=== PATIENT | male | born 1995 | race Caucasian/White ===

== ENCOUNTER 2023-04-25 20:59 | Emergency (ER) | payer SELFPAY ==
[~2023-04-25] VITALS: Ht 165 cm; Wt 136.0 kg
[2023-04-25 21:05] VITALS: BP 148/86
[2023-04-25] MEDS ORDERED: fentaNYL INJECTION 100 MCG/2 ML VIAL IVP STA (21:12)
[2023-04-25] MEDS ORDERED: NS IV 1000 ML 1,000 ML IV STA (21:12)
[2023-04-25] MEDS ORDERED: ONDANSETRON INJECTION 4 MG/2 ML (SDV) IVP ONE (21:15)
[2023-04-25 21:16] LABS: BASOPHILS # (AUTO) 0.1 10^3/uL (0.0-0.1); BASOPHILS % (AUTO) 1 % (0-10); EOSINOPHILS # (AUTO) 0.5 10^3/uL (0.0-0.3); EOSINOPHILS % (AUTO) 5 % (0-10); HEMATOCRIT 43 % (40-54); HEMOGLOBIN 14.3 g/dL (13.3-17.7); LYMPHOCYTES # (AUTO) 2.7 10^3/uL (1.0-4.0); LYMPHOCYTES % (AUTO) 26 % (12-44); MEAN CORPUSCULAR HEMOGLOBIN 28 pg (25-34); MEAN CORPUSCULAR HGB CONC 33 g/dL (32-36); MEAN CORPUSCULAR VOLUME 85 fL (80-99); MEAN PLATELET VOLUME 9.8 fL (9.0-12.2); MONOCYTES # (AUTO) 1.1 10^3/uL (0.0-1.0); MONOCYTES % (AUTO) 10 % (0-12); NEUTROPHILS # (AUTO) 6.3 10^3/uL (1.8-7.8); NEUTROPHILS % (AUTO) 59 % (42-75); PLATELET COUNT 273 10^3/uL (130-400); WHITE BLOOD COUNT 10.7 10^3/uL (4.3-11.0)
--- NOTE | 2023-04-25 21:16 | ED Back Pain ---
General Chief Complaint: Back Problems Stated Complaint: BACK PAIN, BLOOD IN URINE, VOMITING, Source of Information: Patient Exam Limitations: No Limitations History of Present Illness Date Seen by Provider: Apr 25, 2023 Time Seen by Provider: 21:13 Initial Comments Patient is a 27-year-old male who presents ED with left flank, mid upper back pain. Pain started 4 days ago. Described as sharp and appears to be fairly constant. Does get relief with ibuprofen. Pain radiates to the left-sided upper abdomen. Pain seems to be worse with smoking and or sometimes eating. Does report some dark urine. Patient states he vomits every time he eats. History of appendectomy. History of gallstones. Denies chest pain, shortness of breath, cough. Patient states he was riding his skateboard 4 days ago and did fall on his middle left-sided back. He denied of any severe pain after the injury. Denies history of kidney stones. Patient denies of any dysuria, i ncreased urine frequency, fever, chills, headache, dizziness, neck pain, diarrhea Allergies and Home Medications Allergies Coded Allergies: No Known Drug Allergies (Unverified , 04/25/23) Patient Home Medication List Home Medication List Reviewed: Yes Naproxen (Naproxen) 500 Mg Tablet, 500 MG PO Q12H Prescribed by: OSIRIS LAZO on 04/25/232203 Review of Systems Constitutional: No chills, No diaphoresis EENTM: No ear pain, No blurred vision, No double vision Respiratory: No cough, No dyspnea on exertion Cardiovascular: No chest pain Gastrointestinal: abdominal pain; No diarrhea; nausea, vomiting Genitourinary: No decreased output, No discharge, No dysuria, No frequency; hematuria Musculoskeletal: back pain; No joint pain Skin: No change in color, No change in hair/nails All Other Systems Reviewed Negative Unless Noted: Yes Physical Exam Vital Signs Vital Signs - First Documented 04/25/23 21:05 Temp 36.4 Pulse 87 Resp 20 B/P (MAP) 148/86 (106) Pulse Ox 98 O2 Delivery Nasal Cannula Capillary Refill : Height, Weight, BMI Height: '" Weight: lbs. oz. kg; BMI Method: General Appearance: No Apparent Distress, WD/WN HEENT: PERRL/EOMI, TMs Normal, Normal ENT Inspection, Pharynx Normal Neck: Full Range of Motion, Normal Inspection, Non Tender Cardiovascular: Regular Rate, Rhythm, No Edema, No Gallop, No JVD Gastrointestinal: Normal Bowel Sounds, No Organomegaly, No Pulsatile Mass, Non Tender Back: CVA Tenderness (L), Vertebral Tenderness (Midthoracic tenderness. No swelling bruising or redness. No lumbar midline tenderness.) Extremity: Normal Capillary Refill, Normal Inspection, Normal Range of Motion, Non Tender Neurologic/Psychiatric: Alert, Oriented x3, No Motor/Sensory Deficits, Normal Mood/Affect, vaccine specialist II-XII Norm as Tested Skin: Normal Color, Warm/Dry Progress/Results/Core Measures Results/Orders Lab Results Laboratory Tests Test 04/25/23 21:07 04/25/23 21:10 Range/Units Urine Color YELLOW Urine Clarity CLEAR Urine pH 5.5 5-9 Urine Specific [place] >=1.030 1.016-1.022 Urine Protein NEGATIVE NEGATIVE Urine Glucose (UA) NEGATIVE NEGATIVE Urine Ketones NEGATIVE NEGATIVE Urine Nitrite NEGATIVE NEGATIVE Urine Bilirubin NEGATIVE NEGATIVE Urine Urobilinogen 0.2 < = 1.0 MG/DL Urine Leukocyte Esterase NEGATIVE NEGATIVE Urine RBC (Auto) NEGATIVE NEGATIVE Urine RBC RARE /HPF Urine WBC RARE /HPF Urine Squamous Epithelial Cells 0-2 /HPF Urine Crystals NONE /LPF Urine Bacteria NEGATIVE /HPF Urine Casts NONE /LPF Urine Mucus SMALL H /LPF Urine Culture Indicated NO White Blood Count 10.7 4.3-11.0 10^3/uL Red Blood Count 5.04 4.30-5.52 10^6/uL Hemoglobin 14.3 13.3-17.7 g/dL Hematocrit 43 40-54 % Mean Corpuscular Volume 85 80-99 fL Mean Corpuscular Hemoglobin 28 25-34 pg Mean Corpuscular Hemoglobin Concent 33 32-36 g/dL Red Cell Distribution Width 13.2 10.0-14.5 % Platelet Count 273 130-400 10^3/uL Mean Platelet Volume 9.8 9.0-12.2 fL Immature Granulocyte % (Auto) 0 % Neutrophils (%) (Auto) 59 42-75 % Lymphocytes (%) (Auto) 26 12-44 % Monocytes (%) (Auto) 10 0-12 % Eosinophils (%) (Auto) 5 0-10 % Basophils (%) (Auto) 1 0-10 % Neutrophils # (Auto) 6.3 1.8-7.8 10^3/uL Lymphocytes # (Auto) 2.7 1.0-4.0 10^3/uL Monocytes # (Auto) 1.1 H 0.0-1.0 10^3/uL Eosinophils # (Auto) 0.5 H 0.0-0.3 10^3/uL Basophils # (Auto) 0.1 0.0-0.1 10^3/uL Immature Granulocyte # (Auto) 0.0 0.0-0.1 10^3/uL Sodium Level 139 135-145 MMOL/L Potassium Level 4.0 3.6-5.0 MMOL/L Chloride Level 108 H 98-107 MMOL/L Carbon Dioxide Level 20 L 21-32 MMOL/L Anion Gap 11 5-14 MMOL/L Blood Urea Nitrogen 11 7-18 MG/DL Creatinine 0.86 0.60-1.30 MG/DL Estimat Glomerular Filtration Rate 121 BUN/Creatinine Ratio 13 Glucose Level 89 70-105 MG/DL Calcium Level 9.2 8.5-10.1 MG/DL Corrected Calcium 9.1 8.5-10.1 MG/DL Total Bilirubin 0.2 0.1-1.0 MG/DL Aspartate Amino Transf (AST/SGOT) 18 5-34 U/L Alanine Aminotransferase (ALT/SGPT) 17 0-55 U/L Alkaline Phosphatase 79 40-136 U/L Total Protein 7.0 6.4-8.2 GM/DL Albumin 4.1 3.2-4.5 GM/DL Lipase 79 H 8-78 U/L My Orders Orders - CLIFTON AUGUSTE Ua Culture If Indicated (04/25/23 21:01) Cbc And Automated Diff (04/25/23 21:04) Comprehensive Metabolic Panel (04/25/23 21:04) Ct Thoracic Spine Wo (04/25/23 21:10) Ct Abd/Pelvis Wo(Kidney Stone) (04/25/23 21:10) Lipase (04/25/23 21:10) Fentanyl Injection (Fentanyl Injection (04/25/23 21:12) Ns Iv 1000 Ml (Ns Iv 1000 Ml) (04/25/23 21:12) Ondansetron Injection (Ondansetron Inj (04/25/23 21:15) Medications Given in ED Vital Signs/I&O 04/25/23 21:05 Temp 36.4 Pulse 87 Resp 20 B/P (MAP) 148/86 (106) Pulse Ox 98 O2 Delivery Nasal Cannula Departure Communication (PCP) Reviewed previous ER visits, H&P, lab testing. Patient complaining of mid back pain left-sided flank pain past 3 to 4 days. Did state he was skateboarding 4 days ago fell hitting his lower back. Denies hitting his head, loss of consci ousness or on blood thinners. He denied immediate pain. This pain radiates to the left sided abdomen. No history of kidney stones. He does report vomiting seems to be worse with eating. Denies of any diarrhea, pain with urination but did report some hematuria. Differential diagnosis thoracic back sprain, thoracic spine fracture, nephrolithiasis, urolithiasis, cystitis. Denies any chest pain, shortness of breath or cough. No flulike symptoms. CBC, CMP, lipase, urinalysis was ordered. Urinalysis was negative for infection or hematuria. CBC showed normal white blood count, hemoglobin grossly unremarkable. Chemistry normal kidney function liver function and pancreatic function. CT scan of thoracic spine did not show any acute fracture. CT abdomen pelvis without contrast did not show any evidence of nephrolithiasis, urolithiasis and was grossly unremarkable. Did receive a dose of pain medication started on liter of fluid with improvement of pain. Discussed all results with patient. This is likely more thoracic muscle strain secondary to the fall. There is no evidence of acute abdomen. Pain improved significantly. Discussed all results with patient. Continue with conservative measures at home. Will discharge with anti-inflammatories. Follow-up your PCP in 2 to 3 days for reevaluation. If any worsening pain, vomiting, fever or symptoms return back to ED. Patient agrees with plan of action Impression Primary Impression: Back strain Disposition: 01 HOME, SELF-CARE Condition: Stable Departure-Patient Inst. Decision time for Depature: 22:02 Referrals: [facility] [place] [facility],LOCAL PHYSICIAN (PCP) Primary Care Physician Patient Instructions: Muscle Strain (DC) Add. Discharge Instructions: Recommend rest, anti-inflammatories. May take a few weeks for improvement. If any worsening symptoms return to keep All discharge instructions reviewed with patient and/or family. Voiced understanding. Scripts Naproxen (Naproxen) 500 Mg Tablet 500 MG PO Q12H for 7 Days, #14 TAB Prov: CLIFTON AUGUSTE 04/25/23 CLIFTON AUGUSTE Apr 25, 2023 21:16
[2023-04-25 21:23] LABS: CLARITY,URINE CLEAR; COLOR,URINE YELLOW
[2023-04-25 21:24] LABS: BILIRUBIN,URINE NEGATIVE (NEGATIVE); GLUCOSE, URINE (UA) NEGATIVE (NEGATIVE); KETONES,URINE NEGATIVE (NEGATIVE); NITRITE,URINE NEGATIVE (NEGATIVE); PH,URINE 5.5 (5-9); PROTEIN,URINE NEGATIVE (NEGATIVE)
[2023-04-25 21:25] LABS: BACTERIA,URINE NEGATIVE /HPF; LEUKOCYTE ESTERASE ,URINE NEGATIVE (NEGATIVE); RBC,URINE RARE /HPF; SQUAMOUS EPITHELIAL CELL,UR 0-2 /HPF; WBC,URINE RARE /HPF
[2023-04-25 21:36] LABS: ALBUMIN 4.1 GM/DL (3.2-4.5); BILIRUBIN,TOTAL 0.2 MG/DL (0.1-1.0); CALCIUM 9.2 MG/DL (8.5-10.1); CREATININE SERUM 0.86 MG/DL (0.60-1.30)
--- NOTE | 2023-04-25 21:54 | Diagnostic Imaging Report ---
PROCEDURE: CT urinary tract, rule out kidney stone. TECHNIQUE: Multiple contiguous axial images were obtained through the abdomen and pelvis without the use of intravenous contrast. Auto Exposure Controls were utilized during the CT exam to meet ALARA standards for radiation dose reduction. INDICATION: Fall with injury to abdomen and pelvis. Patient has blood in urine and left flank pain. FINDINGS: Unenhanced images of the liver, gallbladder, pancreas, adrenal glands, and spleen are unremarkable. The kidneys have a normal appearance. No perinephric hematoma is identified. There is no hydronephrosis or hydroureter. The unopacified bladder is unremarkable in appearance. The appendix is absent. No acute osseous abnormality is seen. IMPRESSION: No acute abnormality. Dictated by: Dictated on workstation # [id number]
--- NOTE | 2023-04-25 21:56 | Diagnostic Imaging Report ---
PROCEDURE: CT thoracic spine without contrast. TECHNIQUE: Multiple axial computerized tomography images were obtained from the base of the thoracic spine to the vertex without intravenous contrast. Auto Exposure Controls were utilized during the CT exam to meet ALARA standards for radiation dose reduction. INDICATION: Fall with back pain. FINDINGS: CT of the thoracic spine reveals normal thoracic spinal curvature and alignment. Vertebral body heights and disc spaces are maintained. There is no evidence of paraspinous abnormality. No lytic or sclerotic lesion is seen. IMPRESSION: No CT evidence of acute thoracic spinal abnormality. Dictated by: Dictated on workstation # [id number]
[2023-04-25] MEDS ORDERED: NAPR-915 PO (22:04)
== END 2023-04-25 22:12 | disposition home or self-care (01) ==
LOC: ER 21:04
DX: S29.012A Strain of muscle and tendon of back wall of thorax, initial encounter (principal); V00.131A Fall from skateboard, initial encounter; Y93.51 Activity, roller skating (inline) and skateboarding
CPT/HCPCS: 36415; 72128; 74176; 80053; 81000; 83690; 85025; 96374; 96375